=== PATIENT | female | born 1955 | race Caucasian/White ===

== ENCOUNTER 2016-09-23 12:11 | Day surgery (SDC) | payer OTHER, MEDICAID ==
[2016-09-23] MEDS ORDERED: NS 1000 ML 1,000 ML ONE (12:16)
[2016-09-23] MEDS ORDERED: DIPRIVAN VIAL 20 ML ONE ×2 (12:58→13:34)
[2016-09-23 14:01] VITALS: BP 129/63
== END 2016-09-23 14:15 | disposition home or self-care (01) ==
LOC: SURG1 12:11
PROVIDERS: ATTEND Internal Medicine
PROC: 0DJD8ZZ Inspection of Lower Intestinal Tract, Via Natural or Artificial Opening Endoscopic (ICD-10-PCS; principal; 2016-09-23 13:45)
DX: Z12.11 Encounter for screening for malignant neoplasm of colon (principal); K64.0 First degree hemorrhoids
CPT/HCPCS: A4217; J3490